=== PATIENT | male | born 1970 | race Caucasian/White ===

== ENCOUNTER 2022-12-17 17:54 | Inpatient (IN) | payer SELFPAY ==
[~2022-12-17] VITALS: Ht 160 cm; Wt 68.5 kg
[2022-12-17 18:58] LABS: BASOPHILS % 0.3 % (0.0-2.0); EOSINOPHILS % 0.5 % (0.0-5.0); HEMATOCRIT. 46.6 % (42.0-52.0); LYMPHOCYTES % 34.1 % (20.0-50.0); MEAN CORPUSCULAR HEMOGLOBIN 29.6 pg (28.0-32.0); MEAN CORPUSCULAR VOLUME 86.1 fL (80.0-94.0); MONOCYTES % 8.8 % (2.0-8.0); NEUTROPHILS % 56.3 % (40.0-76.0); PLATELET 165 x1000/uL (130-400); RED BLOOD CELL COUNT 5.42 mill/uL (4.7-6.1); RED CELL DISTRIBUTION WIDTH 14.6 % (11.6-14.6)
[2022-12-17 19:05] LABS: PROTHROMBIN TIME 11.2 sec (9.6-11.0)
[2022-12-17 19:08] LABS: CHLORIDE 108 mEq/L (98-107)
[2022-12-17 19:18] LABS: ETHANOL BLOOD < 10 mg/dL
[2022-12-17] MEDS ORDERED: IOHEXOL-350 100 ML BOTTLE ONE (19:29)
[2022-12-17] MEDS ORDERED: ASPIRIN 81MG TABLET PO ONE (19:45)
[2022-12-17] MEDS ORDERED: ATORVASTATIN CALCIUM 40MG TABLET PO SCH (19:45)
[2022-12-17] MEDS ORDERED: CLOPIDOGREL 75MG TABLET PO ONE (19:45)
[2022-12-17 20:36] LABS: CLARITY URINE CLEAR (CLEAR); COLOR URINE YELLOW (YELLOW); KETONES URINE NEGATIVE (NEGATIVE); LEUKOCYTE ESTERASE URINE NEGATIVE (NEGATIVE); NITRITE URINE NEGATIVE (NEGATIVE); OCCULT BLOOD URINE NEGATIVE (NEGATIVE); PROTEIN URINE NEGATIVE (NEGATIVE); SPECIFIC GRAVITY URINE 1.026 (1.005-1.030); UROBILINOGEN URINE 0.2 E.U./dL (0.2-1.0)
[2022-12-17 20:50] LABS: *AMPHETAMINES SCREEN URINE NEGATIVE (NEGATIVE); *BARBITURATES SCREEN URINE NEGATIVE (NEGATIVE); *BENZODIAZEPINES SCREEN URINE NEGATIVE (NEGATIVE); *COCAINE SCREEN URINE NEGATIVE (NEGATIVE); CANNABINOID URINE SCREEN NEGATIVE (NEGATIVE); METHADONE URINE SCREEN NEGATIVE (NEGATIVE); OPIATES URINE SCREEN NEGATIVE (NEGATIVE); PHENCYCLIDINE URINE SCREEN NEGATIVE (NEGATIVE)
[2022-12-18] MEDS ORDERED: ONDANSETRON HCL 4MG/2ML INJ IV PRN (02:00)
[2022-12-18] MEDS ORDERED: ACETAMINOPHEN 325MG TABLET PO PRN ×2 (02:00)
[2022-12-18] MEDS ORDERED: DIPHENHYDRAMINE 50MG/ML VIAL IV PRN (02:00)
[2022-12-18] MEDS ORDERED: CLONIDINE 0.1MG TABLET PO PRN (02:00)
[2022-12-18] MEDS ORDERED: PREDNISONE 20MG TABLET PO NR ×2 (02:00→15:00)
[2022-12-18] MEDS ORDERED: MAGNESIUM/ALUMINUM HYDROXIDE/SIMETHICONE 30ML UDC PO PRN (02:00)
[2022-12-18] MEDS: SODIUM CHLORIDE 0.9% INJ 3ML FLUSH IVF SCH ×2 (06:02→13:38)
[2022-12-18 08:56] VITALS: BP 142/91
[2022-12-18 09:00] VITALS: BP 142/91
[2022-12-18 12:00] VITALS: BP 135/83
[2022-12-18 15:39] VITALS: BP 137/83
[2022-12-18 16:00] VITALS: BP 132/75
[2022-12-18] MEDS ORDERED: FAMOTIDINE 20MG TABLET PO SCH (21:00)
== END 2022-12-18 18:00 | disposition home or self-care (01) | DRG 48 ==
LOC: ER 17:54 → MICUSO 20:49 → 7EST 12-18 08:55
PROVIDERS: ADMIT Internal Medicine; ATTEND Internal Medicine
DX: G51.0 Bell's palsy (principal); Z20.822 Contact with and (suspected) exposure to COVID-19
CPT/HCPCS: 36415; 70496; 70498; 70551; 71045; 80053; 80305; 80320; 81003; 83880; 84484; 85025; 87426; 93005; 93880; 99291; C9803; J7512; Q9967; G0480